=== PATIENT | male | born 1975 | race Caucasian/White ===

== ENCOUNTER 2016-06-03 06:01 | Emergency (ER) | payer SELFPAY ==
[2016-06-03] MEDS ORDERED: Ondansetron 4 MG Tab.DIS PO PRN (06:26)
[2016-06-03] MEDS ORDERED: HYDROmorphone 2 MG/ML Syringe IM ONE (06:26)
[2016-06-03] MEDS ORDERED: Ondansetron 8 MG Tab.DIS PO ONE (06:30)
[2016-06-03] MEDS ORDERED: Ondansetron 4 MG Tab.DIS PO ONE (06:32)
--- NOTE | 2016-06-03 06:35 | EDM.PDOC ---
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 At that time they did not attempt to remove the clot and revascularize as he had developed collateral circulation but he was told that this would be a problem long-term. The patient states he has had some intermittent episodes of abdominal pain since that time but has never been severe and he follows with a family DrChica at [facility]. Patient does not live here locally in lives in [place]. The patient states that he was at the ER at [facility] in [place] 6 days ago, on , with abdominal pain which was more severe and he was worked up in the ER with labs and a CAT scan with contrast of his abdomen and pelvis. He was told again that he had complete blockage of the main artery but there was collateral circulation and there was no emergent reason from their testing for admission. He was referred back to his primary care physician who he saw several days ago. He has since had multiple episodes of diarrhea which is loose or watery every time he eats but has not been black or bloody. He has had some episodic bouts of mild abdominal pain and he had outpatient labs and stool testing done with his primary provider. He does not really know the results of these tests. The patient states he was told that if the pain worsened or if he started having Vomiting that he should come to the ER and he is here for that this morning. The patient has an appointment next week with a surgeon to discuss his case. The patient states his pain is mid abdominal and slightly to the left and it is deep pain which is quite strong but is not crampy in nature. He does not feel bloated and he has had 2 episodes of vomiting. He has not had fever chest pain or shortness of breath. Patient has not taken anything for pain at home. Review of systems: As per history of present illness and below otherwise all systems reviewed and negative. Past medical history: As per history of present illness and as reviewed below otherwise noncontributory. Surgical history: As per history of present illness and as reviewed below otherwise noncontributory. Social history: No reported history of drug or alcohol abuse. Family history: As per history of present illness and as reviewed below otherwise noncontributory. Physical exam: General: Well-developed mildly overweight male who is nontoxic and speaking clearly and easily. His vital signs of been reviewed by me HEENT: Atraumatic, normocephalic, negative for conjunctival pallor or scleral icterus, mucous membranes moist, throat clear, neck supple, nontender, trachea midline. Lungs: Clear to auscultation, breath sounds equal bilaterally, chest nontender. Heart: S1S2, regular, negative for clicks, rubs, or JVD. Abdomen: Soft, nondistended, with a large well-healed midline vertical incision without any hernial defects. There is diffuse tenderness to the left of the old incision but there is no tympany masses rebound or guarding. Bowel sounds are hypoactive. Negative for masses or hepatosplenomegaly. Pelvis: Stable nontender. Genitourinary: Deferred. Rectal: Deferred. Extremities: Atraumatic, negative for cords or calf pain. Neurovascular unremarkable. Neuro: Awake, alert, oriented. Cranial nerves II through XII unremarkable. Cerebellum unremarkable. Motor and sensory unremarkable throughout. Exam nonfocal. Diagnostics: The patient has refused any testing care Therapeutics: Dilaudid Zofran After lengthy discussion with the patient I have offered him repeat labs and CAT scan to be performed to compare with his testing done 6 days ago in [place]. I explained to him that we can compare the testing results and if there is an emergent change that I could quickly transfer him to [place] and address that directly. He states that he would prefer to get something for pain and nausea and just go to [place] were all of his specialists are and his primary care physician. He states he would rather transport himself to where he would prefer to have care. I explained to him that I could perform these tests and get results with comparison to his prior tests faster than he can drive to [place] but he still would prefer that option. He understands my concerns and the risks involved and accepts all those risks.. I will give him something for pain and Zofran for nausea and I will contact the ER physician in [facility] and alert him of this patient and that he will be on his way there. 0640: Case is discussed with the ER physician at [facility], Dr. Tafoya. He is aware of the case and my concerns and will notify the neck shift of this patient's impending arrival. In the interim I've also obtained the CT angiogram results from [facility] in [place] performed last week on May 22. 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 I discussed these results with the patient as well as his elevated blood pressure and he is currently aware of all of this and again accepts the risks involved with the elevated blood pressure and potential change in his CT scan and his clinical status. Patient will sign an AMA form Impression: Abdominal pain with vomiting complicated abdominal vascular history stable Definitive disposition and diagnosis as appropriate pending reevaluation and review of above. Abdomen Pain Score (Numeric/FACES): 6 - Related Data Allergies Allergy/AdvReac Type Severity Reaction Status Date / Time niacin Allergy Rash Verified 06/03/16 06:08 Home Meds: Home Meds Aspirin 81 mg PO ONETIME 06/03/16 [History] Lisinopril/Hydrochlorothiazide [Lisinopril-Hctz 20-25 mg Tab] 1 each PO DAILY [History] ED ROS GENERAL - Review of Systems Review Of Systems: ROS reveals no pertinent complaints other than HPI. ED EXAM, GENERAL - Physical Exam Exam: See Below (See dictation) Course - Vital Signs Last Recorded V/S: Last Vital Signs Temp 36.4 C 06/03/16 06:10 Pulse 96 06/03/16 06:10 Resp 16 06/03/16 06:10 BP 181/131 H 06/03/16 06:10 Pulse Ox 96 06/03/16 06:10 - Orders/Labs/Meds Orders: Active Orders 24 hr Category Date Time Status Ondansetron [Zofran ODT] Med 06/03/16 06:26 Ordered 8 mg PO ONETIME PRN Medication Orders Ondansetron HCl (Zofran Odt) 8 mg PO ONETIME PRN PRN Reason: Nausea/Vomiting Meds: Medications Generic Name Dose Route Start Last Admin Trade Name Freq PRN Reason Stop Dose Admin Ondansetron HCl 8 mg 06/03/16 06:26 Zofran Odt PO ONETIME PRN Nausea/Vomiting Discontinued Medications Generic Name Dose Route Start Last Admin Trade Name Freq PRN Reason Stop Dose Admin Hydromorphone HCl 1 mg 06/03/16 06:26 06/03/16 06:32 Dilaudid IM 06/03/16 06:27 1 mg ONETIME ONE Administration Ondansetron HCl 8 mg 06/03/16 06:32 06/03/16 06:33 Zofran Odt PO 06/03/16 06:33 Not Given ONETIME ONE Ondansetron HCl Confirm 06/03/16 06:30 06/03/16 06:33 Zofran Odt Administered 06/03/16 06:31 8 mg Dose Administration 8 mg PO .STK-MED ONE Departure - Departure Time of Disposition: 06:47 Disposition: Against Medical Advice 07 Condition: good Clinical Impression: Abdominal pain Qualifiers: Abdominal location: periumbilical Qualified Code(s): R10.33 - Periumbilical pain Forms: ED Department Discharge Additional Instructions: The following information is given to patients seen in the emergency department who are being discharged to home. This information is to outline your options for follow-up care. We provide all patients seen in our emergency department with a follow-up referral. The need for follow-up, as well as the timing and circumstances, are variable depending upon the specifics of your emergency department visit. If you don't have a primary care physician on staff, we will provide you with a referral. We always advise you to contact your personal physician following an emergency department visit to inform them of the circumstance of the visit and for follow-up with them and/or the need for any referrals to a consulting specialist. The emergency department will also refer you to a specialist when appropriate. This referral assures that you have the opportunity for followup care with a specialist. All of these measure are taken in an effort to provide you with optimal care, which includes your followup. Under all circumstances we always encourage you to contact your private physician who remains a resource for coordinating your care. When calling for followup care, please make the office aware that this follow-up is from your recent emergency room visit. If for any reason you are refused follow-up, please contact the [facility] emergency department at and ask to speak to the emergency department charge nurse. [facility] Primary care- Internal Medicine and Family [address] [id number] Please go immediately to [facility] as you plan to have further care and evaluation and return to ER as needed and as discussed - My Orders Last 24 Hours: My Active Orders 06/03/16 06:26 Ondansetron [Zofran ODT] 8 mg PO ONETIME PRN - Assessment/Plan Last 24 Hours: My Active Orders 06/03/16 06:26 Ondansetron [Zofran ODT] 8 mg PO ONETIME PRN
[2016-06-03 06:58] VITALS: BP 158/110
== END 2016-06-03 06:56 | disposition left against medical advice (07) ==
LOC: MW.ED 06:01
DX: R10.33 Periumbilical pain (principal); R11.10 Vomiting, unspecified
CPT/HCPCS: 96372; 99283; A9270; J1170; 99284

== ENCOUNTER 2017-01-08 23:10 | Emergency (ER) | payer OTHER ==
[2017-01-08] MEDS ORDERED: Sodium Chloride 0.9% 1,000 ML IV ONE (23:33)
[2017-01-08] MEDS ORDERED: Ondansetron 4 MG/2 ML SDV IVPUSH ONE (23:33)
--- NOTE | 2017-01-08 23:34 | EDM.PDOC ---
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 Lazo in [place] 10 days prior He has as small 2-3 inch incision which opened a few days after surgery, surgery was 10 days prior on the . 3 days later he was seen in the ER in [place] as the wound had slightly opened he was advised to pack this is followed with Dr. Lazo since. He presents with abdominal pain today and some nausea and diarrhea no fever chills sweats no headache dizziness or palpitations no urine symptoms ] States that he has abdominal pain he rates 7 out of 10 this is consistent with his chronic abdominal pain that he has had Review of systems: As per history of present illness and below otherwise all systems reviewed and negative. Past medical history: As per history of present illness and as reviewed below otherwise noncontributory. Surgical history: As per history of present illness and as reviewed below otherwise noncontributory. Social history: No reported history of drug or alcohol abuse. Family history: As per history of present illness and as reviewed below otherwise noncontributory. Physical exam: HEENT: Atraumatic, normocephalic, pupils reactive, negative for conjunctival pallor or scleral icterus, mucous membranes moist, throat clear, neck supple, nontender, trachea midline. Lungs: Clear to auscultation, breath sounds equal bilaterally, chest nontender. Heart: S1S2, regular, negative for clicks, rubs, or JVD. Abdomen: Soft, nondistended, diffusely tender with focus in the left lower quadrant. Negative for masses or hepatosplenomegaly. Negative for costovertebral tenderness. Old midline incision scar well healed adjacent the navel on the left surgical incision of recent is open a hole approximately inch and a quarter in diameter exists this will have to heal by secondary intent there is no redness warmth or exudate for culture wound is clean and dry Pelvis: Stable nontender. Genitourinary: Deferred. Rectal: Deferred. Extremities: Atraumatic, negative for cords or calf pain. Neurovascular unremarkable. Neuro: Awake, alert, oriented. Cranial nerves II through XII unremarkable. Cerebellum unremarkable. Motor and sensory unremarkable throughout. Exam nonfocal. Diagnostics: [] Therapeutics: [1 L normal saline bolus Morphine 2 mg IV Dilaudid 1 mg IV Percocet 5 per 325 by mouth 4 times a day when necessary #30 no refill 24 hours off work Follow-up with primary care as needed Follow-up with Dr. Lazo as scheduled Patient was offered admission but refused ] Impression: Colitis [Abdominal pain Date 10 postop for hernia repair Chronic history as above] Definitive disposition and diagnosis as appropriate pending reevaluation and review of above. Left Upper Abdomen Pain Score (Numeric/FACES): 9 - Related Data Allergies Allergy/AdvReac Type Severity Reaction Status Date / Time droperidol Allergy Confusion Verified 01/08/17 23:39 niacin Allergy Rash Verified 06/03/16 06:08 Home Meds: Home Meds Aspirin 81 mg PO ONETIME 06/03/16 [History] Lisinopril/Hydrochlorothiazide [Lisinopril-Hctz 20-25 mg Tab] 20 - 25 mg PO DAILY 06/03/16 [History] oxyCODONE HCl/Acetaminophen [Percocet 10-325 mg Tablet] 10 - 325 mg PO ASDIRECTED PRN 01/08/17 [History] Past Medical History HEENT History: Reports: None Cardiovascular History: Reports: Hypertension Respiratory History: Reports: None Gastrointestinal History: Reports: None Genitourinary History: Reports: None Musculoskeletal History: Reports: None Neurological History: Reports: None Psychiatric History: Reports: None Endocrine/Metabolic History: Reports: Other (See Below) Other Endocrine/Metabolic History: High Bilirubin Hematologic History: Reports: None Immunologic History: Reports: None Oncologic (Cancer) History: Reports: None Dermatologic History: Reports: None - Infectious Disease History Infectious Disease History: Reports: Chicken Pox - Past Surgical History GI Surgical History: Reports: Hernia, Abdominal, Other (See Below) Social & Family History - Family History Family Medical History: Noncontributory - Tobacco Use Smoking Status *Q: Current Every Day Smoker Years of Tobacco use: 10 Packs/Tins Daily: 0.5 - Caffeine Use Caffeine Use: Reports: Coffee - Recreational Drug Use Recreational Drug Use: No ED ROS GENERAL - Review of Systems Review Of Systems: ROS reveals no pertinent complaints other than HPI. ED EXAM, GENERAL - Physical Exam Exam: See Below Course - Vital Signs Last Recorded V/S: Last Vital Signs Temp 36.3 C 01/09/17 02:13 Pulse 77 01/09/17 02:13 Resp 18 01/09/17 02:13 BP 133/98 H 01/09/17 02:13 Pulse Ox 94 L 01/09/17 02:13 - Orders/Labs/Meds Orders: Active Orders 24 hr Category Date Time Status Abdomen Pelvis wo Cont [CT] Stat Exams 01/09/17 01:02 Taken Labs: Laboratory Tests 01/08/17 01/08/17 01/08/17 Range/Units 23:40 23:40 23:40 WBC 14.87 H (4.0-11.0) K/uL RBC 5.58 (4.50-5.90) M/uL Hgb 18.7 H (13.0-17.0) g/dL Hct 53.8 H (38.0-50.0) % MCV 96.4 (80.0-98.0) fL MCH 33.5 H (27.0-32.0) pg MCHC 34.8 (31.0-37.0) g/dL RDW Std Deviation 50.7 (28.0-62.0) fl RDW Coeff of Adrian 14 (11.0-15.0) % Plt Count 222 (150-400) K/uL MPV 9.70 (7.40-12.00) fL Neut % (Auto) 68.4 (48.0-80.0) % Lymph % (Auto) 20.3 (16.0-40.0) % Ware % (Auto) 9.2 (0.0-15.0) % Eos % (Auto) 1.8 (0.0-7.0) % Baso % (Auto) 0.3 (0.0-1.5) % Neut # (Auto) 10.2 H (1.4-5.7) K/uL Lymph # (Auto) 3.0 H (0.6-2.4) K/uL Ware # (Auto) 1.4 H (0.0-0.8) K/uL Eos # (Auto) 0.3 (0.0-0.7) K/uL Baso # (Auto) 0.0 (0.0-0.1) K/uL Nucleated RBC % 0.0 /100WBC Nucleated RBCs # 0 K/uL INR 1.12 H (0.86-1.11) Sodium 141 (136-146) mmol/L Potassium 4.3 (3.5-5.1) mmol/L Chloride 105 (98-110) mmol/L Carbon Dioxide 24 (21-31) mmol/L BUN 31 H (6.0-23.0) mg/dL Creatinine 1.4 (0.6-1.5) mg/dL Est Cr Clr Drug Dosing 81.55 mL/min Estimated GFR (MDRD) 56.1 ml/min Glucose 117 H (60-110) mg/dL Calcium 9.4 (8.8-10.8) mg/dL Total Bilirubin 1.4 (0.1-1.5) mg/dL AST 22 (5-40) IU/L ALT 57 H (8-54) IU/L Alkaline Phosphatase 100 (40-150) Total Protein 7.7 (6.0-8.0) g/dL Albumin 4.3 (3.5-5.0) g/dL Globulin 3.4 (2.0-3.5) g/dL Albumin/Globulin Ratio 1.3 (1.3-2.8) Amylase 55 (10-90) U/L Lipase 31 (7-80) U/L Urine Color Urine Appearance Urine pH (5.0-8.0) Ur Specific [place] (1.001-1.035) Urine Protein (NEGATIVE) mg/dL Urine Glucose (UA) (NEGATIVE) mg/dL Urine Ketones (NEGATIVE) mg/dL Urine Occult Blood (NEGATIVE) Urine Nitrite (NEGATIVE) Urine Bilirubin (NEGATIVE) Urine Urobilinogen (<2.0) EU/dL Ur Leukocyte Esterase (NEGATIVE) Urine RBC (0-2/HPF) Urine WBC (0-5/HPF) Ur Epithelial Cells (NONE-FEW) Urine Bacteria (NEGATIVE) 01/09/17 Range/Units 00:05 WBC (4.0-11.0) K/uL RBC (4.50-5.90) M/uL Hgb (13.0-17.0) g/dL Hct (38.0-50.0) % MCV (80.0-98.0) fL MCH (27.0-32.0) pg MCHC (31.0-37.0) g/dL RDW Std Deviation (28.0-62.0) fl RDW Coeff of Adrian (11.0-15.0) % Plt Count (150-400) K/uL MPV (7.40-12.00) fL Neut % (Auto) (48.0-80.0) % Lymph % (Auto) (16.0-40.0) % Ware % (Auto) (0.0-15.0) % Eos % (Auto) (0.0-7.0) % Baso % (Auto) (0.0-1.5) % Neut # (Auto) (1.4-5.7) K/uL Lymph # (Auto) (0.6-2.4) K/uL Ware # (Auto) (0.0-0.8) K/uL Eos # (Auto) (0.0-0.7) K/uL Baso # (Auto) (0.0-0.1) K/uL Nucleated RBC % /100WBC Nucleated RBCs # K/uL INR (0.86-1.11) Sodium (136-146) mmol/L Potassium (3.5-5.1) mmol/L Chloride (98-110) mmol/L Carbon Dioxide (21-31) mmol/L BUN (6.0-23.0) mg/dL Creatinine (0.6-1.5) mg/dL Est Cr Clr Drug Dosing mL/min Estimated GFR (MDRD) ml/min Glucose (60-110) mg/dL Calcium (8.8-10.8) mg/dL Total Bilirubin (0.1-1.5) mg/dL AST (5-40) IU/L ALT (8-54) IU/L Alkaline Phosphatase (40-150) Total Protein (6.0-8.0) g/dL Albumin (3.5-5.0) g/dL Globulin (2.0-3.5) g/dL Albumin/Globulin Ratio (1.3-2.8) Amylase (10-90) U/L Lipase (7-80) U/L Urine Color YELLOW Urine Appearance CLEAR Urine pH 5.5 (5.0-8.0) Ur Specific [place] 1.025 (1.001-1.035) Urine Protein 30 (NEGATIVE) mg/dL Urine Glucose (UA) NEGATIVE (NEGATIVE) mg/dL Urine Ketones NEGATIVE (NEGATIVE) mg/dL Urine Occult Blood NEGATIVE (NEGATIVE) Urine Nitrite NEGATIVE (NEGATIVE) Urine Bilirubin NEGATIVE (NEGATIVE) Urine Urobilinogen 1.0 (<2.0) EU/dL Ur Leukocyte Esterase NEGATIVE (NEGATIVE) Urine RBC 0-1 (0-2/HPF) Urine WBC 0-3 (0-5/HPF) Ur Epithelial Cells FEW (NONE-FEW) Urine Bacteria RARE (NEGATIVE) Meds: Medications Discontinued Medications Generic Name Dose Route Start Last Admin Trade Name Doris PRN Reason Stop Dose Admin Hydromorphone HCl 1 mg 01/09/17 01:36 01/09/17 01:46 Dilaudid IVPUSH 01/09/17 01:37 1 mg ONETIME ONE Administration Sodium Chloride 1,000 mls @ 999 mls/hr 01/08/17 23:33 01/08/17 23:44 Normal Saline IV 01/09/17 00:33 999 mls/hr STAT ONE Administration Morphine Sulfate 2 mg 01/09/17 00:41 01/09/17 00:54 Morphine IV 01/09/17 00:42 2 mg ONETIME ONE Administration Ondansetron HCl 8 mg 01/08/17 23:33 01/08/17 23:45 Zofran IVPUSH 01/08/17 23:34 8 mg ONETIME ONE Administration Departure - Departure Time of Disposition: 02:31 Disposition: Home, Self-Care 01 Condition: Good Clinical Impression: Colitis - Discharge Information Referrals: PCP,None [Primary Care Provider] - Forms: ED Department Discharge Additional Instructions: Fluid hydration with water and/or Gatorade Medication as prescribed Return if symptoms persist or worsen or new concerning symptoms develop Follow-up with primary care in 2 weeks Follow-up with Dr. Lazo as scheduled The following information is given to patients seen in the emergency department who are being discharged to home. This information is to outline your options for follow-up care. We provide all patients seen in our emergency department with a follow-up referral. The need for follow-up, as well as the timing and circumstances, are variable depending upon the specifics of your emergency department visit. If you don't have a primary care physician on staff, we will provide you with a referral. We always advise you to contact your personal physician following an emergency department visit to inform them of the circumstance of the visit and for follow-up with them and/or the need for any referrals to a consulting specialist. The emergency department will also refer you to a specialist when appropriate. This referral assures that you have the opportunity for follow-up care with a specialist. All of these measure are taken in an effort to provide you with optimal care, which includes your follow-up. Under all circumstances we always encourage you to contact your private physician who remains a resource for coordinating your care. When calling for follow-up care, please make the office aware that this follow-up is from your recent emergency room visit. If for any reason you are refused follow-up, please contact the [facility] emergency department at and asked to speak to the emergency department charge nurse. - My Orders Last 24 Hours: My Active Orders 01/09/17 01:02 Abdomen Pelvis wo Cont [CT] Stat - Assessment/Plan Last 24 Hours: My Active Orders 01/09/17 01:02 Abdomen Pelvis wo Cont [CT] Stat
[2017-01-09] MEDS ORDERED: Morphine 10 MG/ML Syringe IV ONE (00:41)
[2017-01-09] MEDS ORDERED: HYDROmorphone 2 MG/ML Syringe IVPUSH ONE (01:36)
[2017-01-09 02:17] VITALS: BP 133/98
--- NOTE | 2017-01-10 19:02 | CT ---
EXAM DATE: 01/08/17 PATIENT'S AGE: 41 Patient: BESSY ALFONSO Facility: [place], [place] Site . Site : [id number] Study: CT Abdomen/Pelvis [id number]/[id number] 1:31:07 AM Ordering Physician: Hailey Mason Final Report: INDICATION: Abdominal pain, vomiting, and diarrhea. Status post cholecystectomy and hernia repair on 12/29/2016. TECHNIQUE: CT abdomen and pelvis without contrast. COMPARISON: None. FINDINGS: [facility] [employer] [facility] CT images: Nonobstructive bowel gas pattern. Cholecystectomy surgical clips are noted right upper abdomen. Lower chest: Mild degree of bibasilar atelectasis. No free air. Imaged inferior heart normal in size. No pericardial or pleural effusion. Liver: Unremarkable. Spleen: Unremarkable. Pancreas: Unremarkable. Gallbladder and bile ducts: Gallbladder is surgically absent. Bile ducts normal in caliber. Adrenal glands: Unremarkable. Kidneys: Unremarkable. No kidney or ureteral stones and no hydronephrosis. GI tract: Loops of bowel are nondilated. Small bowel anastomosis in the left mid abdomen. No adjacent mesenteric fat stranding or fluid. Normal appendix is well visualized in the right lower above quadrant. Large bowel normal in caliber. Midline anterior surgical defect. Short segment of transverse colon medially posterior to the surgical defect in the anterior abdominal wall with questionable bowel wall thickening. No abnormal distension of bowel. Vascular structures: Limited evaluation without IV contrast. Abdominal aorta normal in caliber. Lymph nodes: Unremarkable. Miscellaneous: Unremarkable. No free air or significant free fluid. Midline anterior surgical defect. No residual hernia. No anterior abdominal wall fluid collection. Pelvic Organs: Unremarkable. Bones: Unremarkable for age. IMPRESSION: 1. Gallbladder is surgically absent with recent repair of anterior abdominal wall hernia. 2. Postsurgical changes in the anterior abdominal wall with surgical defect and mild degree of fat stranding. No residual hernia identified. 3. Short segment of transverse colon immediately posterior to the hernia repair site in the anterior abdomen. Possible mild degree of bowel wall thickening, raising possibility for a short segment of infectious colitis. No underlying bowel obstruction. 4. Gallbladder surgically absent. No residual fluid or inflammatory changes in the surgical bed. 5. Normal appendix. 6. Small bowel anastomosis in the left abdomen. No abnormal distention to indicate bowel obstruction at this level. Dictated by Ryan Lambert MD @ 01/09/2017 1:56:26 AM Dictated by: Ryan Lambert MD @ 01/09/2017 01:56:35 (Electronic Signature) Report Signed by Proxy. MTDD
== END 2017-01-09 02:45 | disposition home or self-care (01) ==
LOC: MW.ED 23:10
DX: K52.9 Noninfective gastroenteritis and colitis, unspecified (principal); I10 Essential (primary) hypertension; F17.210 Nicotine dependence, cigarettes, uncomplicated; Z88.8 Allergy status to other drugs, medicaments and biological substances; Z79.899 Other long term (current) drug therapy
CPT/HCPCS: 74176; 80053; 81001; 82150; 83690; 85025; 85610; 96361; 96374; 96375; 99284; J1170; J2270; J2405; J7040; 99283